=== PATIENT | male | born 1950 | race Caucasian/White ===

== ENCOUNTER 2019-04-06 06:17 | Day surgery (SDC) | payer MEDICARE, BC ==
[2019-04-06] MEDS ORDERED: Lactated Ringers 1,000 ML IV SCH (07:00)
[2019-04-06] MEDS ORDERED: fentaNYL 100 MCG/2 ML SDV ONE (07:20)
[2019-04-06] MEDS ORDERED: Propofol 200 MG/20 ML SDV ONE ×2 (07:20→07:43)
--- NOTE | 2019-04-06 10:59 | OR ---
PREOPERATIVE DIAGNOSIS: Positive fecal immunochemical test. POSTOPERATIVE DIAGNOSIS: Normal colonoscopy. ANESTHESIA: MAC anesthesia. COMPLICATIONS: None. FINDINGS: 1. There were no polyps identified. 2. There was a moderate amount of liquid stool which may be on colonoscopic examination a bit more difficult, but I feel that no large polyps were missed. INDICATION FOR PROCEDURE: Mr. Watt is a 68-year-old male who has never had a colonoscopy. He has recently had a positive FIT test and so has been referred for colonoscopy. He has no history of colorectal cancer nor does he have any family history of colorectal cancer. DETAILS OF PROCEDURE: After informed consent was obtained, the patient was brought to the procedure room. He was placed in left lateral decubitus position and MAC anesthesia was induced by Anesthesia colleagues. I began with digital rectal exam which revealed no abnormalities. Endocuff device was placed in the colonoscope and it was advanced all the way to the cecum and photographs of the appendiceal orifice and IC valve were taken. The colonoscope was then slowly withdrawn. There was moderate amount of liquid stool, but I feel no large polyps were missed. A retroflexed view showed some mild internal hemorrhoids. Start time 07:34, cecum 07:44, end 07:57. RKM: 04/06/2019 08:14:13 MODL: 04/06/2019 10:45:33 /[id number]
== END 2019-04-06 09:07 | disposition home or self-care (01) ==
LOC: VM.SDS 06:17
PROVIDERS: ATTEND Student in an Organized Health Care Education/Training Program
DX: R19.5 Other fecal abnormalities (principal); I10 Essential (primary) hypertension; I48.91 Unspecified atrial fibrillation; E66.09 Other obesity due to excess calories; Z79.01 Long term (current) use of anticoagulants; Z79.899 Other long term (current) drug therapy; Z68.41 Body mass index [BMI] 40.0-44.9, adult
CPT/HCPCS: 00812; 36415; 45378; 85610; J2704; J3010; J7120

== ENCOUNTER 2023-10-23 08:44 | Emergency (ER) | payer MEDICARE, BC | END 2023-10-23 09:13 | disposition home or self-care (01) | LOC: SUPCPDRO 08:44 → VM.ED 08:44 | DX: S91.115A Laceration without foreign body of left lesser toe(s) without damage to nail, initial encounter (principal); I10 Essential (primary) hypertension; E20.9 Hypoparathyroidism, unspecified; E66.9 Obesity, unspecified; Z68.43 Body mass index [BMI] 50.0-59.9, adult; Z79.899 Other long term (current) drug therapy; W26.8XXA Contact with other sharp object(s), not elsewhere classified, initial encounter | CPT/HCPCS: 99282 ==

== ENCOUNTER 2024-02-20 09:59 | Observation (INO) | payer MEDICARE, BC ==
[2024-02-20] MEDS ORDERED: Sodium Chloride 0.9% 10 ML Syringe FLUSH PRN (10:33)
[2024-02-20 10:51] LABS: HEMATOCRIT 37.3 % (40.0-52.0); HEMOGLOBIN 12.6 g/dL (14.0-18.0); MEAN CORPUSCULAR HEMOGLOBIN 32.6 pg (26.0-32.0); MEAN CORPUSCULAR HGB CONC 33.8 g/dL (32.0-36.0); MEAN CORPUSCULAR VOLUME 96.4 fL (78.0-93.0); PLATELET COUNT,PLT 429 x10^3/uL (130-400); RED BLOOD CELL COUNT 3.87 x10^6/uL (4.5-6.0)
[2024-02-20 10:54] LABS: WHITE BLOOD CELL COUNT,WBC 27.1 x10^3/uL (4.0-10.0)
[2024-02-20 11:15] LABS: ALANINE AMINOTRANSFERASE,ALT 49 U/L (16-63); ALBUMIN 2.4 g/dL (3.4-5.0); ALKALINE PHOSPHATASE 110 U/L (46-116); ASPARTATE AMNIOTRANSFERASE,AST 20 U/L (15-37); BAND PERCENT MAN 2 % (0-6); BILIRUBIN TOTAL 1.8 mg/dL (0.2-1.0); BLOOD UREA NITROGEN,BUN 25 mg/dL (7-18); CALCIUM 8.5 mg/dL (8.5-10.1); CARBON DIOXIDE,CO2 27 mmol/L (21-32); CHLORIDE,CL 101 mmol/L (98-107); CREATININE 1.6 mg/dL (0.70-1.30); EST CRCL DRUG DOSING (CG) 43.72 mL/min; GLUCOSE RANDOM 152 mg/dL (70-99); LYMPHOCYTES ABSOLUTE MAN 1.4 x10^3/uL (1.0-4.8); LYMPHOCYTES PERCENT MAN 5 % (25-50); MONOCYTES ABSOLUTE MAN 1.4 x10^3/uL (0.0-0.8); MONOCYTES PERCENT MAN 5 % (2-11); NEUTROPHILS ABSOLUTE MAN 24.4 x10^3/uL (1.8-7.7); PLATELET COUNT ESTIMATE INCREASED; POTASSIUM,K 4.5 mmol/L (3.5-5.1); PROTEIN TOTAL,TP 7.2 g/dL (6.4-8.2); SEG NEUTROPHILS PERCENT MAN 88 % (50-80); SODIUM,NA 138 mmol/L (136-145)
[2024-02-20 11:17] LABS: ANION GAP 14.5 mmol/L (5-15); ESTIMATED GFR 46 mL/min (>=60)
[2024-02-20] MEDS: Iopamidol 755 Mg/ML 100 ML Bottle IVPUSH ONE (11:55)
[2024-02-20 12:46] LABS: INR 2.5 (0.9-1.1); PROTHROMBIN TIME 24.6 SEC (8.9-11.5)
[2024-02-20] MEDS: Sodium Chloride 0.9% 1,000 ML IV ONE (13:05)
[2024-02-20] MEDS ORDERED: Loperamide 2 MG Cap PO PRN (13:51)
[2024-02-20] MEDS: cefTRIAXone 2 GM Vial IVPUSH SCH (15:25)
[2024-02-20] MEDS: traMADol 50 MG Tab PO PRN (16:27)
[2024-02-20] MEDS: Metoprolol Succinate 50 MG Tab.ER PO SCH (18:11)
[2024-02-20] MEDS: Warfarin 2.5 MG Tab PO ONE (18:11)
[2024-02-20] MEDS: Celecoxib 100 MG Cap PO SCH (18:12)
[2024-02-20] MEDS: Spironolactone 25 MG Tab PO SCH (18:12)
[2024-02-20] MEDS: Levothyroxine 100 MCG Tab PO SCH (18:13)
[2024-02-20] MEDS: Losartan 50 MG Tab PO SCH (18:13)
[2024-02-20] MEDS: Diltiazem 180 MG Cap.CD PO SCH (18:13)
[2024-02-20] MEDS: Morphine 4 MG/ML Syringe IVPUSH ONE (18:33)
[2024-02-20] MEDS: Ondansetron 4 MG/2 ML SDV IVPUSH ONE (18:40)
[2024-02-21] MEDS ORDERED: Celecoxib 100 MG Cap PO SCH (09:00)
== END 2024-02-20 18:53 | disposition short-term general hospital (02) ==
LOC: VM.ED 09:59 → VM.MS 13:24
PROVIDERS: ADMIT Physician Assistant; ATTEND Physician Assistant
DX: J90 Pleural effusion, not elsewhere classified (principal); D72.828 Other elevated white blood cell count; I10 Essential (primary) hypertension; I48.91 Unspecified atrial fibrillation; Z79.01 Long term (current) use of anticoagulants; Z79.899 Other long term (current) drug therapy
CPT/HCPCS: 36415; 71275; 80053; 83605; 84484; 85025; 85610; A9270; J0696; J2270; J2405; J7030; Q9967; 87040; 87077; 87147; 99284

== ENCOUNTER 2024-05-27 10:09 | Inpatient (IN) | payer MEDICARE, BC ==
[2024-05-27] MEDS ORDERED: Melatonin 3 MG Tab PO PRN (16:39)
[2024-05-27] MEDS ORDERED: Ondansetron 4 MG Tab.DIS PO PRN (16:39)
[2024-05-27] MEDS ORDERED: oxyCODONE 5 MG Tab PO PRN (16:39)
[2024-05-27] MEDS ORDERED: Polyethylene Glycol 3350 Powder 17 GM Packet PO PRN (16:39)
[2024-05-27] MEDS ORDERED: Loperamide 2 MG Cap PO PRN (16:47)
[2024-05-27] MEDS ORDERED: Warfarin 2.5 MG Tab PO SCH (17:00)
[2024-05-27] MEDS: Bumetanide 1 MG Tab PO SCH (18:13)
[2024-05-27] MEDS: Cephalexin 500 MG Cap PO SCH (20:52)
[2024-05-27] MEDS: Gabapentin 300 MG Cap PO SCH (20:52)
[2024-05-27] MEDS: Metoprolol Tartrate 50 MG Tab PO SCH (20:54)
[2024-05-28] MEDS: Levothyroxine 100 MCG Tab PO SCH (06:09)
[2024-05-28 08:29] LABS: INR 1.2 (0.9-1.1); PROTHROMBIN TIME 13.1 SEC (9.6-12.0)
[2024-05-28] MEDS: Multivitamin Tab PO SCH (08:43)
[2024-05-28] MEDS: Finasteride 5 MG Tab PO SCH (08:43)
[2024-05-28] MEDS: Ascorbic Acid 500 MG Tab PO SCH (08:43)
[2024-05-28] MEDS: Calcium Carbonate/Vitamin D3 1250 MG-5 MCG Tab PO SCH (08:43)
[2024-05-28] MEDS: Spironolactone 25 MG Tab PO SCH (08:45)
[2024-05-28] MEDS: Diltiazem 180 MG Cap.CD PO SCH (08:45)
[2024-05-28] MEDS: Losartan 50 MG Tab PO SCH (08:45)
[2024-05-28] MEDS: Warfarin 5 MG Tab PO ONE (19:31)
[2024-05-29 08:16] LABS: INR 1.3 (0.9-1.1); PROTHROMBIN TIME 14.2 SEC (9.6-12.0)
[2024-05-29] MEDS: Warfarin 5 MG Tab PO ONE (20:29)
[2024-05-30 07:12] LABS: CALCIUM 9.4 mg/dL (8.5-10.1); CREATININE 2.6 mg/dL (0.70-1.30); EST CRCL DRUG DOSING (CG) 26.91 mL/min; POTASSIUM,K 4.8 mmol/L (3.5-5.1)
[2024-05-30 07:13] LABS: ANION GAP 10.8 mmol/L (5-15)
[2024-05-30 07:29] LABS: INR 1.5 (0.9-1.1); PROTHROMBIN TIME 15.5 SEC (9.6-12.0)
[2024-05-30] MEDS: Warfarin 5 MG Tab PO ONE (21:44)
[2024-05-31] MEDS: Acetaminophen 325 MG Tab PO PRN (06:55)
[2024-05-31 07:15] LABS: INR 1.5 (0.9-1.1); PROTHROMBIN TIME 16.1 SEC (9.6-12.0)
[2024-05-31] MEDS: Warfarin 5 MG Tab PO ONE (21:01)
[2024-06-01 07:20] LABS: INR 1.7 (0.9-1.1); PROTHROMBIN TIME 18.3 SEC (9.6-12.0)
[2024-06-01] MEDS: Warfarin 5 MG Tab PO ONE (20:27)
[2024-06-02 07:26] LABS: INR 1.8 (0.9-1.1); PROTHROMBIN TIME 18.8 SEC (9.6-12.0)
[2024-06-02] MEDS: Ergocalciferol (Vitamin D2) 1.25 MG Cap PO SCH (08:29)
[2024-06-02] MEDS: Warfarin 5 MG Tab PO SCH (20:15)
[2024-06-03 07:11] LABS: PROTHROMBIN TIME 21.3 SEC (9.6-12.0)
[2024-06-04 08:32] LABS: INR 2.4 (0.9-1.1); PROTHROMBIN TIME 25.1 SEC (9.6-12.0)
[2024-06-04] MEDS: Warfarin 2.5 MG Tab PO SCH (20:27)
[2024-06-05 09:15] LABS: INR 2.7 (0.9-1.1); PROTHROMBIN TIME 27.5 SEC (9.6-12.0)
[2024-06-05] MEDS: Warfarin 2.5 MG Tab PO SCH (20:37)
[2024-06-06 07:07] LABS: INR 2.6 (0.9-1.1); PROTHROMBIN TIME 26.9 SEC (9.6-12.0)
[2024-06-06] MEDS: Metoprolol Tartrate 50 MG, Metoprolol Tartrate 25 MG PO SCH (20:28)
[2024-06-06] MEDS: Warfarin 2.5 MG Tab PO SCH (20:32)
[2024-06-08 07:09] LABS: INR 2.2 (0.9-1.1); PROTHROMBIN TIME 22.6 SEC (9.6-12.0)
[2024-06-08 12:53] LABS: CALCIUM 9.6 mg/dL (8.5-10.1); EST CRCL DRUG DOSING (CG) 23.32 mL/min; POTASSIUM,K 5.4 mmol/L (3.5-5.1)
[2024-06-08 12:54] LABS: ANION GAP 13.4 mmol/L (5-15)
[2024-06-08] MEDS ORDERED: Warfarin 2.5 MG Tab PO SCH (21:00)
[2024-06-09] MEDS ORDERED: Diltiazem 180 MG Cap.CD PO SCH (09:00)
[2024-06-09] MEDS ORDERED: Warfarin 2.5 MG Tab PO SCH (21:00)
== END 2024-06-08 14:00 | disposition home or self-care (01) | DRG 948 ==
LOC: UNDOADMIN 13:33 → VM.MS 13:33
PROVIDERS: ADMIT Internal Medicine; ATTEND Internal Medicine
DX: R53.1 Weakness (principal); Z68.41 Body mass index [BMI] 40.0-44.9, adult; N17.9 Acute kidney failure, unspecified; I48.20 Chronic atrial fibrillation, unspecified; I50.42 Chronic combined systolic (congestive) and diastolic (congestive) heart failure; R78.81 Bacteremia; C64.1 Malignant neoplasm of right kidney, except renal pelvis; M19.90 Unspecified osteoarthritis, unspecified site; Z96.611 Presence of right artificial shoulder joint; G62.9 Polyneuropathy, unspecified; E66.9 Obesity, unspecified; E89.0 Postprocedural hypothyroidism; Z96.649 Presence of unspecified artificial hip joint; N28.89 Other specified disorders of kidney and ureter; G47.33 Obstructive sleep apnea (adult) (pediatric); R33.9 Retention of urine, unspecified; I11.0 Hypertensive heart disease with heart failure; N40.0 Benign prostatic hyperplasia without lower urinary tract symptoms; E55.9 Vitamin D deficiency, unspecified; R73.9 Hyperglycemia, unspecified; E78.1 Pure hyperglyceridemia; Z98.890 Other specified postprocedural states; Z90.89 Acquired absence of other organs; Z79.01 Long term (current) use of anticoagulants; Z86.73 Personal history of transient ischemic attack (TIA), and cerebral infarction without residual deficits; T84.53XD Infection and inflammatory reaction due to internal right knee prosthesis, subsequent encounter; Z79.899 Other long term (current) drug therapy
CPT/HCPCS: 36415; 80048; 85610; 97110-GO; 97110-GP; 97116-GP; 97161-GP; 97164-GP; 97165-GO; 97530-GO; 97535-GO; A9270-GY

== ENCOUNTER 2025-03-18 10:24 | Emergency (ER) | payer MEDICARE, BC | END 2025-03-18 11:27 | disposition home or self-care (01) | LOC: VM.ED 10:24 | DX: R60.0 Localized edema (principal); I10 Essential (primary) hypertension; Z79.01 Long term (current) use of anticoagulants; Z79.890 Hormone replacement therapy; Z79.899 Other long term (current) drug therapy | CPT/HCPCS: 99283 ==